=== PATIENT | male | born 1970 | race Asian ===

== ENCOUNTER 2018-09-30 21:39 | Emergency (ER) | payer SELFPAY ==
[~2018-09-30] VITALS: Ht 170.2 cm; Wt 77.1 kg
[2018-09-30 22:54] LABS: Basophils # (auto) 0 uL; Basophils % (auto) 0.7 % (0.0-2.0); Eosinophils # (auto) 0.2 uL; Eosinophils % (auto) 3.5 % (0.0-7.0); Hematocrit 39.8 % (41.0-53.0); Hemoglobin 13.6 g/dL (13.5-17.5); Lymphocytes % (auto) 17.3 % (10.0-50.0); Mean Corpuscular Hemoglobin 32.5 pg (28.0-32.0); Mean Corpuscular Hgb Conc. 34.1 g/dL (32.0-36.0); Mean Corpuscular Volume 95.2 fL (80.0-100.0); Monocytes # (auto) 0.4 uL; Neutrophils # (auto) 4.2 uL; Neutrophils % (auto) 71.5 % (37.0-80.0); Nucleated Red Blood Cells % 0.2 %; Platelet Count (auto) 157 10^3/uL (140-450); Red Blood Cells 4.18 10^6/uL (4.5-5.90); Red Cell Distribution Width 13.4 % (11.8-14.3); White Blood Cell 5.9 10^3/uL (4.4-10.8)
[2018-09-30 23:14] LABS: Albumin 4.1 g/dL (3.4-5.0); BUN/Creatinine Ratio 9.4; Calcium 8.9 mg/dL (8.5-10.1)
[2018-09-30 23:26] LABS: Bilirubin, Total 0.3 mg/dL (0.2-1.0); Total Protein 8.3 g/dL (6.4-8.2)
[2018-10-01] MEDS ORDERED: SODIUM CHLORIDE 0.9% 1,000 ML IV ONE (04:15)
[2018-10-01] MEDS ORDERED: ONDANSETRON HCL 4 MG/2 ML VIAL IV ONE (05:01)
[2018-10-01 06:07] VITALS: BP 117/75
== END 2018-10-01 07:14 | disposition home or self-care (01) ==
LOC: EDBD 21:39 → ER 21:42 → EDSEX 21:42 → ER 10-01 07:14
DX: K52.9 Noninfective gastroenteritis and colitis, unspecified (principal)
CPT/HCPCS: 36415; 80053; 82150; 83690; 85025; 93005; 96361; 96374; 99284; J2405; J7030